=== PATIENT | female | born 1990 | race Caucasian/White ===

== ENCOUNTER 2017-02-15 11:08 | Emergency (ER) | payer BC, OTHER ==
--- NOTE | 2017-02-15 12:15 | EDM.PDOC ---
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 Was just going to go and get lunch when this occurred. Is on no meds. Passed out once in the past in association with pneumonia. Vomited with this spell today. Denies chest pain, fever, recent diarrhea, melena, or NASCIMENTO. Feels mostly normal now. Thinks her urine has been dark lately. Onset: Today Onset Date: 02/15/17 Onset Time: 11:00 Duration: Minutes: (2) Location: Reports: Generalized Quality: Reports: Other (no pain.) Severity: Moderate Improves with: Reports: Other (time) Worsens with: Reports: Other (unknown) Context: Reports: Other (Ate sugary cereal for breakfast and was due to eat lunch at time of occurrence. ) Associated Symptoms: Reports: Diaphoresis, Fever/Chills ([place] cold at the time of the event. No recent fever. ), Nausea/Vomiting, Syncope Treatments SUPERVISING ARCHITECT: Reports: Other (see below) (none) denies Pain Score (Numeric/FACES): 0 - Related Data Allergies Allergy/AdvReac Type Severity Reaction Status Date / Time Sulfa (Sulfonamide Allergy Rash Verified 02/15/17 12:22 Antibiotics) Home Meds: Home Meds NK [No Known Home Meds] 02/15/17 [History] ED ROS GENERAL - Review of Systems Review Of Systems: See Below Constitutional: Reports: Chills, Diaphoresis HEENT: Reports: No Symptoms Respiratory: Reports: No Symptoms Cardiovascular: Reports: Syncope GI/Abdominal: Reports: Nausea, Vomiting. Denies: Black Stool, Bloody Stool, Constipation, Diarrhea, Hematemesis, Hematochezia, Melena, Stool Incontinence : Reports: No Symptoms Musculoskeletal: Reports: No Symptoms Skin: Reports: No Symptoms Neurological: Reports: No Symptoms Psychiatric: Reports: No Symptoms - Physical Exam Exam: See Below Exam Limited By: No Limitations General Appearance: Alert, WD/WN, No Apparent Distress, Obese Eye Exam: Bilateral Eye: Normal Inspection Ears: Normal External Exam, Normal Canal, Hearing Grossly Normal, Normal TMs Nose: Normal Inspection, Normal Mucosa, No Blood Throat/Mouth: Normal Inspection, Normal Lips, Normal Teeth, Normal Gums, Normal Oropharynx, Normal Voice, No Airway Compromise Head Exam: Atraumatic, Normocephalic Neck: Normal Inspection, Supple, Non-Tender Respiratory/Chest: No Respiratory Distress, Lungs Clear, Normal Breath Sounds, No Accessory Muscle Use Cardiovascular: Regular Rate, Rhythm, No Edema GI/Abdominal: Normal Bowel Sounds, Soft, Non-Tender, No Distention Neuro Exam (Abbreviated): Alert, Oriented, CN II-XII Intact, Normal Cognition, Normal Gait, Normal Reflexes, No Motor/Sensory Deficits Back Exam: Normal Inspection. 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 Positive with a significant increase in HR. Last Recorded V/S: Orthostatic Blood Pressure [ 103/64 Standing] Orthostatic Blood Pressure [ 104/71 Sitting] Orthostatic Blood Pressure [ 96/66 Supine] - Orders/Labs/Meds Orders: Active Orders 24 hr Category Date Time Status Accu Check [Blood Glucose Check, Bedside] [RC] ONETIME Care 02/15/17 12:08 Active Cardiac Monitoring [RC] .As Directed Care 02/15/17 12:08 Active Orthostatic Vital Signs [RC] ASDIRECTED Care 02/15/17 12:08 Active Orthostatic Vital Signs [RC] ASDIRECTED Care 02/15/17 14:00 Active Labs: Laboratory Tests 02/15/17 Range/Units 12:13 POC Glucose 92 (80-116) mg/dL Meds: Medications Discontinued Medications Generic Name Dose Route Start Last Admin Trade Name Glory PRN Reason Stop Dose Admin Lactated Ringer's 1,000 mls @ 1,000 mls/hr 02/15/17 12:22 02/15/17 13:00 Ringers, Lactated IV 02/15/17 13:21 1,000 mls/hr BOLUS ONE Administration Departure - Departure Time of Disposition: 14:00 Disposition: Home, Self-Care 01 Condition: Good Clinical Impression: Orthostatic hypotension, Vasovagal syncope Clinical Impression: (Ruled Out): Vasovagal episode - Discharge Information Referrals: PCP,None [Primary Care Provider] - Forms: ED Department Discharge - My Orders Last 24 Hours: My Active Orders 02/15/17 12:08 Accu Check [Blood Glucose Check, Bedside] [RC] ONETIME Cardiac Monitoring [RC] .As Directed Orthostatic Vital Signs [RC] ASDIRECTED 02/15/17 14:00 Orthostatic Vital Signs [RC] ASDIRECTED - Assessment/Plan Last 24 Hours: My Active Orders 02/15/17 12:08 Accu Check [Blood Glucose Check, Bedside] [RC] ONETIME Cardiac Monitoring [RC] .As Directed Orthostatic Vital Signs [RC] ASDIRECTED 02/15/17 14:00 Orthostatic Vital Signs [RC] ASDIRECTED
[2017-02-15] MEDS ORDERED: Lactated Ringers 1,000 ML IV ONE (12:22)
[2017-02-15 14:34] VITALS: BP 112/70
== END 2017-02-15 14:15 | disposition home or self-care (01) ==
LOC: FB.ED 11:08
DX: I95.1 Orthostatic hypotension (principal); Z88.2 Allergy status to sulfonamides
CPT/HCPCS: 82962; 96360; 99284; J7120

== ENCOUNTER 2020-06-19 01:27 | Emergency (ER) | payer BC ==
[2020-06-19 01:39] VITALS: BP 104/70; PULSE 72
--- NOTE | 2020-06-19 02:20 | EDM.PDOC ---
ED HPI GENERAL MEDICAL PROBLEM - General Chief Complaint: Abdominal Pain Stated Complaint: ABDOMINAL PAIN Time Seen by Provider: 06/19/20 02:18 Source of Information: Reports: Patient History Limitations: Reports: No Limitations - History of Present Illness INITIAL COMMENTS - FREE TEXT/NARRATIVE: Ashely complains of aching epigastric pain x 30 min. Sudden oset that woke her up from sleep.Associated with 1 emesis. It resolved while on her eway to the ED. Bilateral Upper Abdomen Pain Score (Numeric/FACES): 5 - Related Data Allergies Allergy/AdvReac Type Severity Reaction Status Date / Time Sulfa (Sulfonamide Allergy Rash Verified 06/19/20 01:35 Antibiotics) Home Meds: Home Meds NK [No Known Home Meds] 02/15/17 [History] Past Medical History - Past Health History Medical/Surgical History: Denies Medical/Surgical History Social & Family History - Family History Family Medical History: No Pertinent Family History - Tobacco Use Tobacco Use Status *Q: Never Tobacco User - Caffeine Use Caffeine Use: Reports: None - Recreational Drug Use Recreational Drug Use: No ED ROS GENERAL - Review of Systems Review Of Systems: Comprehensive ROS is negative, except as noted in HPI. ED EXAM, GI/ABD - Physical Exam Exam: See Below Exam Limited By: No Limitations General Appearance: Alert, WD/WN Respiratory/Chest: No Respiratory Distress Cardiovascular: Normal Peripheral Pulses GI/Abdominal Exam: Normal Bowel Sounds, Soft Course - Vital Signs Last Recorded V/S: Last Vital Signs Temp 97.4 F 06/19/20 01:35 Pulse 72 06/19/20 01:35 Resp 16 06/19/20 01:35 BP 104/70 06/19/20 01:35 Pulse Ox 100 06/19/20 01:35 - Orders/Labs/Meds Orders: Active Orders 24 hr Category Date Time Status CBC WITH AUTO DIFF [HEME] Stat Lab 06/19/20 02:05 Received COMPREHENSIVE METABOLIC PN,CMP [CHEM] Stat Lab 06/19/20 02:05 Received LIPASE [CHEM] Stat Lab 06/19/20 02:05 Received Departure - Departure Time of Disposition: 02:19 Disposition: Home, Self-Care 01 Condition: Good Clinical Impression: Abdominal pain - Discharge Information Referrals: PCP,None [Primary Care Provider] - Sepsis Event Note (ED) - Evaluation Sepsis Screening Result: No Definite Risk - Focused Exam Vital Signs: Vital Signs Temp Pulse Resp BP Pulse Ox 06/19/20 01:35 97.4 F 72 16 104/70 100 - Problem List & Annotations (1) Abdominal pain SNOMED Code(s): 01433281 Code(s): R10.9 - UNSPECIFIED ABDOMINAL PAIN Status: Acute Current Visit: Yes Qualifiers: Abdominal location: epigastric Qualified Code(s): R10.13 - Epigastric pain - Problem List Review Problem List Initiated/Reviewed/Updated: Yes - My Orders Last 24 Hours: My Active Orders 06/19/20 02:05 CBC WITH AUTO DIFF [HEME] Stat COMPREHENSIVE METABOLIC PN,CMP [CHEM] Stat LIPASE [CHEM] Stat - Assessment/Plan Last 24 Hours: My Active Orders 06/19/20 02:05 CBC WITH AUTO DIFF [HEME] Stat COMPREHENSIVE METABOLIC PN,CMP [CHEM] Stat LIPASE [CHEM] Stat Plan: I have ordered out patient US of th Gall bladder
== END 2020-06-19 02:29 | disposition home or self-care (01) ==
LOC: FB.ED 01:27
DX: R10.13 Epigastric pain (principal); R10.11 Right upper quadrant pain; R10.12 Left upper quadrant pain; Z88.2 Allergy status to sulfonamides
CPT/HCPCS: 36415; 80053; 83690; 85025; 99284

== ENCOUNTER 2020-07-17 06:48 | Day surgery (SDC) | payer BC ==
[2020-07-17] MEDS ORDERED: HYDROmorphone 2 MG/ML SDV IV ONE (06:49)
[2020-07-17] MEDS ORDERED: Rocuronium 50 MG/5 ML Vial IV ONE (06:49)
[2020-07-17] MEDS ORDERED: Midazolam 1 MG/ML 2 ML SDV IV ONE (06:49)
[2020-07-17] MEDS ORDERED: Glycopyrrolate 0.2 MG/ML 5 ML MDV IV ONE (06:49)
[2020-07-17] MEDS ORDERED: Scopolamine 1 MG Transdermal Patch TOP ONE (06:49)
[2020-07-17] MEDS ORDERED: Ketorolac 30 MG/ML SDV IVPUSH ONE (06:49)
[2020-07-17] MEDS ORDERED: Lactated Ringers 1,000 ML IV ONE (06:49)
[2020-07-17] MEDS ORDERED: fentaNYL 100 MCG/2 ML SDV IV ONE (06:49)
[2020-07-17] MEDS ORDERED: Neostigmine Methylsulfate 10 MG/10 ML MDV IVPUSH ONE (06:49)
[2020-07-17] MEDS ORDERED: Propofol 200 MG/20 ML SDV IV ONE (06:49)
[2020-07-17] MEDS ORDERED: Ondansetron 4 MG/2 ML SDV IVPUSH ONE (06:49)
[2020-07-17] MEDS ORDERED: cefOXitin 2 GM Vial IVPUSH ONE (08:00)
[2020-07-17] MEDS ORDERED: cefOXitin 2 GM in Sodium Chloride 0.9% 100 ML IV ONE (08:00)
[2020-07-17] MEDS ORDERED: Sodium Chloride 0.9% 10 ML Syringe FLUSH PRN (08:00)
[2020-07-17] MEDS ORDERED: Lactated Ringers 1,000 ML IV SCH (08:00)
[2020-07-17] MEDS ORDERED: Lidocaine 1% with EPINEPHrine 1:100,000 20 ML MDV INJECT ONE (08:24)
[2020-07-17] MEDS ORDERED: Bupivacaine 0.5% 30 ML SDV INJECT ONE (08:24)
[2020-07-17] MEDS ORDERED: Acetaminophen/HYDROcodone 325-5 MG Tab PO PRN (09:19)
--- NOTE | 2020-07-17 09:26 | PCM.OPNOTE ---
- General Post-Op/Procedure Note Date of Surgery/Procedure: 07/17/20 Operative Procedure(s): lap cholecystectomy Findings: critical view obtained. no marked inflammation Pre Op Diagnosis: cholelithiasis without obstruction or cholecystitis Post-Op Diagnosis: Same Anesthesia Technique: General ET Tube, Local (10 ml 1%lido with epi/0.5% buvipicaine) Primary Surgeon: Truman Umana Anesthesia Provider: Philippe Esparza Pathology: gallbladder and contents Complications: None Condition: Good Free Text/Narrative:: see dictation [id number]
[2020-07-17 11:21] VITALS: BP 97/62; PULSE 61
--- NOTE | 2020-07-17 13:43 | OR ---
DATE OF OPERATION: 07/17/2020 SURGEON: Truman Umana MD PROCEDURE PERFORMED: Laparoscopic cholecystectomy. PREOPERATIVE DIAGNOSIS: Laparoscopic cholecystectomy without obstruction or cholecystitis. POSTOPERATIVE DIAGNOSIS: Laparoscopic cholecystectomy without obstruction or cholecystitis. INDICATIONS FOR PROCEDURE: This is a 29-year-old white female who was referred with a history of biliary colic. Gallbladder demonstrated some sludge or small stones. No signs of obstruction. She was offered and accepted a laparoscopic cholecystectomy. INTRAOPERATIVE FINDINGS: Critical view was obtained without difficulty. A total of 10 mL of 1:1 mixture of 1% lidocaine with epinephrine and 0.5% bupivacaine was used to control for pain. DESCRIPTION OF OPERATION: After an excellent general endotracheal anesthesia was administered by Anesthesia, the patient was prepped and draped in usual sterile manner. Attention was turned to the patient's abdomen. Local was used to infiltrate the base of the umbilicus. A small vertical midline incision was carried out with a #15 scalpel blade. Blunt dissection was carried out exposing the midline fascia. Two stay sutures of 0 Vicryl were placed on either side of the midline which was then incised and the abdominal cavity was entered gently with a Pricila clamp. Digital palpation was carried out to ensure that there were no adhesions, and a 10.5 mm balloon Benjamin trocar was inserted into the patient's abdomen. The patient's abdomen was then insufflated to 15 mmHg using carbon dioxide. The patient was placed in reverse Trendelenburg with an airplane to the left. Three 5 mm ports were placed, 1 in the midline epigastrium and 2 below the right costal margin at the approximate level of the midclavicular and anterior axillary line. This was done using the following technique. The area was infiltrated full-thickness with our local. A stab incision was made with a #15 scalpel blade and the trocars were then inserted through the patient's abdominal wall. Gallbladder was retracted in a cephalad fashion and after grabbing the dome, the infundibulum was grasped. Blunt dissection was carried out exposing the cystic duct and the cystic artery. After obtaining a critical view, 2 clips were placed proximally on the cystic duct and 1 distally at the level of the infundibulum. This was then divided using scissors and the process was repeated for the cystic artery with 2 clips proximally and 1 distally and transecting the cystic artery. L-hook cautery dissection was then used to remove the gallbladder from the gallbladder fossa. The specimen was passed into a bag and delivered out through the periumbilical port. Up near the dome, the gallbladder was entered. There was a spillage of 1 single tiny stone, which was achieved. Otherwise, no gross contamination was noted. The area was irrigated until clear. The gallbladder fossa demonstrated excellent hemostasis. We also irrigated along the right lobe of the liver, and after reinspecting the bed and assuring that there was no bleeding, the 3 trocars were removed under direct visualization. These were the 5 mm trocars. Pneumoperitoneum was released and the Benjamin trocar was removed. The fascial defect in the area of the umbilicus was closed with a running 0 Vicryl. The 2 stay sutures were tied to each other. Subcu 4-0 Vicryl was used to approximate the skin. Needle, sponge, and instrument counts were reported as correct. The patient was taken to recovery room in good condition. /[id number] /MODL
== END 2020-07-17 11:05 | disposition home or self-care (01) ==
LOC: FB.SDS 06:48
PROVIDERS: ATTEND Surgery
DX: K80.10 Calculus of gallbladder with chronic cholecystitis without obstruction (principal); E66.9 Obesity, unspecified; R79.89 Other specified abnormal findings of blood chemistry; Z68.41 Body mass index [BMI] 40.0-44.9, adult; Z88.2 Allergy status to sulfonamides; Z98.890 Other specified postprocedural states
CPT/HCPCS: 00790-QZ; 81025; 88304; A9270-GY; J0694; J1170; J1885; J2250; J2405; J2704; J2710; J3010; J3490; J7120